=== PATIENT | female | born 2000 | race Caucasian/White ===

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

== ENCOUNTER 2018-04-03 18:28 | Emergency (ER) | payer SELFPAY ==
[2018-04-03 18:34] VITALS: BP 137/77; PULSE 90; TEMP 97; BMI 38.0
[2018-04-03] MEDS ORDERED: KETOROLAC TROMETHAMINE 30 MG/1 ML VIAL IM ONE (19:19)
[2018-04-03] MEDS ORDERED: KETOROLAC TROMETHAMINE 30 MG/1 ML VIAL ONE (19:22)
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
== END 2018-04-03 19:33 | disposition home or self-care (01) ==
LOC: JERFT 18:28
PROC: 3E0233Z Introduction of Anti-inflammatory into Muscle, Percutaneous Approach (ICD-10-PCS; principal; 2018-04-03)
DX: M54.42 Lumbago with sciatica, left side (principal)
CPT/HCPCS: 99281-25

== ENCOUNTER 2020-03-02 18:19 | Emergency (ER) | payer OTHER ==
[2020-03-02 18:30] VITALS: BP 132/70; PULSE 89; TEMP 97.9; BMI 41.6
[2020-03-02] MEDS ORDERED: METOCLOPRAMIDE HCL INJECTION 10 MG/2 ML VIAL IVPB ONE (19:57)
[2020-03-02] MEDS ORDERED: SODIUM CHLORIDE 0.9% 500 ML INFUS.BAG IV ONE (19:57)
[2020-03-02] MEDS ORDERED: PROCHLORPERAZINE INJECTION 10 MG/2 ML VIAL IVPB ONE (19:57)
[2020-03-02] MEDS ORDERED: METOCLOPRAMIDE HCL INJECTION 10 MG/2 ML VIAL ONE (20:14)
[2020-03-02] MEDS ORDERED: PROCHLORPERAZINE INJECTION 10 MG/2 ML VIAL ONE (20:26)
[2020-03-02 21:02] LABS: BASO % 0.6 % (0-2.0); EOS % 1.6 % (0-4.5); HEMATOCRIT 40.2 % (32.4-45.2); HEMOGLOBIN 13.3 GM/dL (10.7-15.3); LYMPH % 26.9 % (8-40); MCH 26.4 pg (25.7-33.7); MCHC 33.1 g/dl (32.0-36.0); MEAN CELL VOLUME 79.8 fl (80-96); MEAN PLT VOLUME 8.4 fl (7.5-11.1); MONO % 6.4 % (3.8-10.2); NEUT % 64.5 % (42.8-82.8); PLATELET COUNT 300 K/MM3 (134-434); RBC 5.03 M/mm3 (3.60-5.2); RDW 14.5 % (11.6-15.6)
[2020-03-02 22:08] LABS: CHLORIDE 105 mmol/L (98-107); POTASSIUM 3.9 mmol/L (3.5-5.1); SODIUM 142 mmol/L (136-145)
[2020-03-02 22:11] LABS: ALBUMIN 3.8 g/dl (3.4-5.0); ANION GAP 9 MMOL/L (8-16); BLOOD UREA NITROGEN 8.9 mg/dL (7-18); CO2 29 mmol/L (21-32); GLUCOSE,RANDOM 89 mg/dL (74-106)
[2020-03-02 22:14] LABS: CREATININE 0.5 mg/dL (0.55-1.3); SGOT/AST 49 U/L (15-37)
[2020-03-02 22:16] LABS: TOT PROT 7.7 g/dl (6.4-8.2)
[2020-03-02 22:17] LABS: ALK PHOS 91 U/L (45-117)
[2020-03-02 22:19] LABS: BILIRUBIN,TOTAL 0.3 mg/dL (0.2-1); SGPT/ALT 98 U/L (13-61)
== END 2020-03-02 21:27 | disposition home or self-care (01) ==
LOC: JER 18:19
PROC: 3E033NZ Introduction of Analgesics, Hypnotics, Sedatives into Peripheral Vein, Percutaneous Approach (ICD-10-PCS; principal; 2020-03-02)
PROC: 3E033GC Introduction of Other Therapeutic Substance into Peripheral Vein, Percutaneous Approach (ICD-10-PCS; 2020-03-02)
DX: R51.9 Headache, unspecified (principal)
CPT/HCPCS: 36415; 80053; 82550; 84484; 84703; 85025; 99284-25

== ENCOUNTER 2024-04-13 12:05 | Emergency (ER) | payer OTHER ==
[2024-04-13 12:49] VITALS: RESP 18; BMI 31.4
[2024-04-13] MEDS ORDERED: FAMOTIDINE 20 MG/50 ML IVPB 20 MG/50 ML MG IVPB ONE (13:09)
[2024-04-13] MEDS ORDERED: ACETAMINOPHEN INJECTION 100 ML ONE (13:09)
[2024-04-13] MEDS ORDERED: ONDANSETRON 4 MG/2 ML VIAL ONE (13:09)
[2024-04-13] MEDS: FAMOTIDINE 20 MG/50 ML IVPB 20 MG/50 ML MG IVPB ONE (13:20)
[2024-04-13] MEDS: SODIUM CHLORIDE 1,000 ML IV STA ×3 (13:20→18:28)
[2024-04-13] MEDS: ONDANSETRON 4 MG/2 ML VIAL IVPUSH ONE (13:20)
[2024-04-13] MEDS: ACETAMINOPHEN 1000 MG/100 ML BAG IVPB ONE (13:20)
[2024-04-13 13:32] LABS: BASO % 0.7 % (0-2.0); EOS % 1.6 % (0-4.5); HEMATOCRIT 45.2 % (32.4-45.2); HEMOGLOBIN 15.4 GM/dL (10.7-15.3); LYMPH % 27.6 % (8-40); MCH 28.4 pg (25.7-33.7); MCHC 34.1 g/dl (32.0-36.0); MEAN CELL VOLUME 83.2 fl (80-96); MEAN PLT VOLUME 8.2 fl (7.5-11.1); MONO % 5.8 % (3.8-10.2); NEUT % 64.3 % (42.8-82.8); PLATELET COUNT 286 10^3/uL (134-434); RBC 5.43 M/mm3 (3.60-5.2); RDW 12.5 % (11.6-15.6)
[2024-04-13 13:34] LABS: HCG,QUALITATIVE URINE Negative
[2024-04-13 14:10] LABS: URINE APPEARANCE CLEAR; URINE BILIRUBIN NEGATIVE (NEGATIVE); URINE COLOR YELLOW; URINE GLUCOSE (UA) 3+ (NEGATIVE); URINE KETONE NEGATIVE (NEGATIVE); URINE LEUK ESTERASE NEGATIVE (NEGATIVE); URINE NITRITE NEGATIVE (NEGATIVE); URINE PROTEIN 1+ (NEGATIVE)
[2024-04-13 14:40] LABS: CHLORIDE 100 mmol/L (98-107); POTASSIUM 4.1 mmol/L (3.5-5.1); SODIUM 135 mmol/L (136-145)
[2024-04-13 14:42] LABS: ALBUMIN 3.8 g/dl (3.4-5.0); ANION GAP 8 mmol/L (4-13); BLOOD UREA NITROGEN 10.5 mg/dL (7-18); CALCIUM 9.7 mg/dL (8.5-10.1); CO2 27 mmol/L (21-32)
[2024-04-13 14:45] LABS: CREATININE 0.8 mg/dL (0.55-1.3); SGOT/AST 36 U/L (15-37); SGPT/ALT 81 U/L (13-61)
[2024-04-13 14:46] LABS: EPI CELLS 14 /uL (0-25.1); HYALINE CASTS 0 /uL (0-3.1); URINE BACTERIA 211 /uL (0-1359); URINE RBC 13 /uL (0-23.9); URINE WBC 9 /uL (0-25.8)
[2024-04-13 14:47] LABS: BILIRUBIN,TOTAL 0.8 mg/dL (0.2-1); GLUCOSE,RANDOM 483 mg/dL (74-106); TOT PROT 7.8 g/dl (6.4-8.2)
[2024-04-13 14:48] LABS: ALK PHOS 90 U/L (45-117)
[2024-04-13 19:13] VITALS: BP 122/83; PULSE 88; TEMP 98.4
== END 2024-04-13 19:42 | disposition home or self-care (01) ==
LOC: JER 12:05
PROC: 3E033GC Introduction of Other Therapeutic Substance into Peripheral Vein, Percutaneous Approach (ICD-10-PCS; principal; 2024-04-13)
PROC: 3E033NZ Introduction of Analgesics, Hypnotics, Sedatives into Peripheral Vein, Percutaneous Approach (ICD-10-PCS; 2024-04-13)
PROC: 3E033GC Introduction of Other Therapeutic Substance into Peripheral Vein, Percutaneous Approach (ICD-10-PCS; 2024-04-13)
PROC: 3E0337Z Introduction of Electrolytic and Water Balance Substance into Peripheral Vein, Percutaneous Approach (ICD-10-PCS; 2024-04-13)
PROC: 3E0337Z Introduction of Electrolytic and Water Balance Substance into Peripheral Vein, Percutaneous Approach (ICD-10-PCS; 2024-04-13)
DX: E11.9 Type 2 diabetes mellitus without complications (principal); R11.2 Nausea with vomiting, unspecified; R10.31 Right lower quadrant pain; R10.32 Left lower quadrant pain
CPT/HCPCS: 36415; 74177-TC; 80053; 81003; 82962; 83036; 84703; 85025; 85651; 87077; 87086; 99285-25; J0131; Q9967